=== PATIENT | female | born 2000 | race Caucasian/White ===

== ENCOUNTER 2025-08-19 09:32 | Outpatient (AMB) | payer MEDICAID, SELFPAY ==
[2025-08-19 09:36] VITALS: BP 136/79; PULSE 100; RESP 17; TEMP 36.5; O2SAT 99; BMI 23.8
--- NOTE | 2025-08-19 09:36 | OBCLNT_ITS ---
Vital Signs 08/19/25 09:36 Height 1.57 m Height Method Stated Weight 58.967 kg Weight Measurement Method Standing Scale BMI 23.8 BP 136/79 H Blood Pressure Source Automatic Cuff Blood Pressure Location Right Upper Arm Position Sitting Respiration 17 Pulse 100 Pulse Source Monitor Temp 97.7 F Temp Source Temporal Artery Scan Pulse Oximetry (%) 99 Oxygen Delivery Method Room Air Allergies/Home Meds Allergies & Medications Allergies No Known Allergies Allergy (Verified 08/19/25 09:41) Medication Reconciliation vits no.126-ferrous fum 28 mg iron-folic acid 800 mcg tablet (Classic ) tab PO 08/19/25 [History Confirmed 09/18/25] Intake Visit Data Collection New Patient or Established: New Patient (never been to [facility]) Reason for Visit:: OBI Seen by Clinical Staff ONLY (RN/MA): No Gas Or Petroleum Operator Required: No Do You Feel Safe at Home: Yes Authorities Contacted: N/A PCP or OBGYN visit in last 3 months: No Hx Now: Yes Are you currently on any form of Control: No Last menstrual period: 07/02/25 Pain Present Currently: No Pain Scale Used: Walker-Franklin/Numerical Pain scale:: 0 Smoking Status Smoking Status: Never smoker Immunizations Flu Vaccine in the Last 12 Months: No Questionnaires Covid-19 Vaccine Questionnaire Has patient been vacinated for Covid-19 Have you been vacinated for Covid-19: No PHQ-9 PHQ-2 Over the last 2 weeks, how often have you been bothered by any of the following problems? 1. Little interest or pleasure in doing things: not at all 2. Feeling down, depressed, or hopeless: not at all Total score: 0 PHQ-9 3. Trouble falling or staying asleep, or sleeping too much: Not at all 4. Feeling tired or having little energy: Not at all 5. Poor appetite or overeating: Not at all 6. Feeling bad about yourself - or that you are a failure or have let yourself or your family down: Not at all 7. Trouble concentrating on things, such as reading the newspaper or watching television: Not at all 8. Moving or speaking so slowly that other people could have noticed? - Or the opposite - being so fidgety or restless that you have been moving around a lot more than usual: not at all 9. Thoughts that you would be better off or of hurting yourself in some way: Not at all Total score: 0 If you checked off any problems, how difficult have these problems made it for you to do your work, take care of things at home, or get along with other people?: not difficult at all Source: Developed by Drs. Jarred Kasper, Mary Ann Fortune, Дмитрий Singh and colleagues, with an educational alex from [employer]. Depression screen completed yes Social History Living Situation History Marital Status: Single Lives With: Significant Other Housing: House Tobacco History Smoking Status: Never smoker Second Hand Smoke Exposure: No Alcohol History Alcohol Intake: Never Domestic Abuse History Do You Feel Safe at Home: Yes History of Present Illness HPI Narrative 25Years old G3?P?2at gestational age?6.6 weeks based on last menstrual period of dated?.07/02/2025 No complaints so far Here for first visit [id number] or 2022 LMP 07/02/2025 Ultrasound none so far medical problems none occ headaches Allergies NKDA Surgical history social history negative She has c/o green discharge on and off and would like to be checked Plan NIPT / carrier testing and labs next visit in 4 weeks Taking vitamins OB Initial Visit OB Flowsheet OB Flowsheet Initial Weight: Not Recorded Date -?-?-?-?-?-?-?-?-?-?-?-?- EGA Weight BP Alb Glu CTX Pres Fundal ht FHR Mov Dilation Station Effacement Hx Notes Visit Note 08/19/25 -?-?-?-?-?-?-?-?-?-?-?-?- 6w 6d 58.967 kg 136/79 09/18/25 -?-?-?-?-?-?-?-?-?-?-?-?- 11w 1d 58.684 kg 119/80 150 active Menstrual History Menstrual reliability: approximate (month known) Flow: normal Menstrual regularity: regular Monthly: Yes Age at menarche: 11 On control pills at conception: No OB History : 4 Para: 2 Hx # Pregnancies: 1 Hx Total # of Abortions (Spontaneous & Elective): 1 # of Living Children: 2 Delivery History 1st : Child's name: MONSTER NASCIMENTO date: 12/10/20 sex: male Gestational age at delivery (weeks): 40 Delivery type: vaginal weight (lbs): 3628.739 g History of depression before or after : No 2nd : Child's name: PARISH NASCIMENTO date: 01/17/24 sex: male Gestational age at delivery (weeks): 36 Delivery type: vaginal weight (lbs): 2721.554 g History of depression before or after : No Infection History & Risk Evaluation History of STDs: none Patient or partner has history of Genital Herpes: No Varicella/chicken pox status: immunized Genetic Screening & History Genetic Screening/Teratology Counseling - Includes patient, baby's father, or anyone in either family with: 1. Patient's age 35 years or older as of estimated date of delivery: No 2. Thalassemia (Beninese, Pashto, Mediterranean, or Background); MCV less than 80: No 3. Neural Tube Defect (Meningomyelocele, Spina Bifida, or Anencephaly): No 4. Congenital Heart Defect: Yes 5. Down Syndrome: No 6. Dc-Sachs (Ashkenazi Gnosticism, Cajun, Macedonian [place]): No 7. Daiana Disease (Ashkenazi Gnosticism): No 8. Familial Dysautonomia (Ashkenazi Gnosticism): No 9. Sickle Cell Disease or Trait (): No 10. Hemophilia or other blood disorders: No 11. Muscular Dystrophy: No 12. Cystic Fibrosis: No 13. Mary's Chorea: No 14. Mental Retardation/Autism: No 15. Other inherited genetic or chromosomal disorder: No 16. Maternal Metabolic Disorder (EG,TYPE 1 Diabetes, PKU): No 17. Patient or baby's father had a child with defects not listed above: No 18. Recurrent loss or a stillbirth: No 19. Medications (including supplements, vitamins, herbs or otc drugs)/illicit/recreational drugs/alcohol since last menstrual period: No 20. Any other: No Infection History 1. Live with someone with TB or exposed to TB: No Other (see comments) Source: [employer] Exam Narrative Physical exam: Alert and oriented x 3 no shortness of breath Pain no chest pain no palpitations Chest clear bilaterally no additional sounds, no wheezing no rales CVS regular rate and rhythm No CVAT Abdomen nontender, normal bowel sounds No guarding no rigidity No hernias pelvic exam small white discharge / uterus soft 6 to 8 weeks , R/V , cervic non tender / adnexa negative Vaginal c/s taken Office Procedures OBC Clinic LOC & Office Proc's Nursing/Assessment Patient Status: Initial/New Patient OB Clinic Nursing Assessment: Medication Reconciliation, Update PMH in EMR and Vital Signs OB Clinic Coordination of Care: Complex Care and Chronic Disease 1-5, Education Complex Pt/Fam, Consent,records obtained, informed consent, Lab and Imaging orders and Staff clarify orders Special Needs: Heart tones New Patient Charge New Patient Point Assignment: [id number] New Patient Point Charge: OIL LABORATORY ANALYST Level 4 ([id number]) In Clinic Bedside tests/procedures Bedside HCG: Yes Results Urine HCG Urine HCG Positive Last Edit by Daphney Stone MA on 08/19/25 09:5 8
== END 2025-08-19 10:13 | disposition home or self-care (01) ==
LOC: HODSOBC 09:32
PROVIDERS: Supervising Provider Advanced Practice Midwife; Visit Provider Obstetrics & Gynecology
DX: O09.891 Supervision of other high risk pregnancies, first trimester (principal); O99.891 Other specified diseases and conditions complicating pregnancy; N89.8 Other specified noninflammatory disorders of vagina; Z3A.01 Less than 8 weeks gestation of pregnancy
CPT/HCPCS: 81025; 99204; G0463

== ENCOUNTER 2025-09-18 09:34 | Outpatient (AMB) | payer MEDICAID, SELFPAY ==
[2025-09-18 09:43] VITALS: BP 119/80; PULSE 102; RESP 18; TEMP 36.3; O2SAT 99; BMI 23.8
--- NOTE | 2025-09-18 09:43 | OBCLNT_ITS ---
Vital Signs 09/18/25 09:43 Height 1.57 m Height Method Stated Weight 58.684 kg Weight Measurement Method Standing Scale BMI 23.8 BP 119/80 Blood Pressure Source Automatic Cuff Blood Pressure Location Right Upper Arm Position Sitting Respiration 18 Pulse 102 H Pulse Source Monitor Temp 97.4 F Temp Source Temporal Artery Scan Pulse Oximetry (%) 99 Oxygen Delivery Method Room Air Allergies/Home Meds Allergies & Medications Allergies No Known Allergies Allergy (Verified 08/19/25 09:41) Medication Reconciliation vits no.126-ferrous fum 28 mg iron-folic acid 800 mcg tablet (Classic ) tab PO 08/19/25 [History Confirmed 09/18/25] Immunizations Immunizations Flu Vaccine in the Last 12 Months: No Flu Vaccine Exclusion Criteria: No Exclusion Criteria Care OB Visit Log OB Flowsheet Initial Weight: Not Recorded Date -?-?-?-?-?-?-?-?-?-?-?-?- EGA Weight BP Alb Glu CTX Pres Fundal ht FHR Mov Dilation Station Effacement Hx Notes Visit Note 08/19/25 -?-?-?-?-?-?-?-?-?-?-?-?- 6w 6d 58.967 kg 136/79 09/18/25 -?-?-?-?-?-?-?-?-?-?-?-?- 11w 1d 58.684 kg 119/80 150 active ENID Calculator Estimated Delivery Date Method Current WG Current Estimate 04/08/26 LMP (Certain) 11w 1d Notes Visit Date: 09/18/25 Last Updated by: Sandra Krishnan MD 25 years old at 11.1 weeks / bedside Us shows CRL c/w 11.4 weeks and FCA present / Plan first trimester labs and Carrier screening and also carrier screening MSAFP next visit Visit Date: 08/19/25 Last Updated by: Sandra Krishnan MD 25Years old G3?P?2at gestational age?6.6 weeks based on last menstrual period of dated?.07/02/2025 No complaints so far Here for first visit/ urine HCG positive in office today [id number] or 2022 LMP 07/02/2025 Ultrasound none so far medical problems none occ headaches Allergies NKDA Surgical history social history negative She has c/o green discharge on and off and would like to be checked Plan NIPT / carrier testing and labs next visit in 4 weeks Taking vitamins Office Procedures OBC Clinic LOC & Office Proc's Nursing/Assessment Patient Status: Established Patient OB Clinic Nursing Assessment: Medication Reconciliation, Update PMH in EMR and Vital Signs OB Clinic Coordination of Care: Complex Care and Chronic Disease 1-5, Education Complex Pt/Fam, Consent,records obtained, informed consent, Lab and Imaging orders, Results/Orders obtained and Staff clarify orders Special Needs: Heart tones Established Patient Charge Established Patient Point Assignment: 140 Established Patient Point Charge: EP Level 4 (120-155) Assessment & Plan Diagnosis / Problem List (1) : Status: Acute Qualifiers: Weeks of gestation: 11 weeks Qualified Code(s): Z3A.11 - 11 weeks gestation of Plan: HISTORY OF PRESENT ILLNESS AI Consent obtained: I, Dr. Krishnan, have obtained verbal consent from the patient, to be recorded during this encounter which may include, but not limited to, medical history, examination, treatment plans, and relevant health information. Patient was informed that recording will be read and reviewed by myself before inclusion in the medical chart. Recordings will be maintained in accordance with State and Federal law and only for a limited period of time for validation purposes, then destroyed and not retained. The patient presents for evaluation of . She is currently 11 weeks and has not yet undergone any initial blood work. She plans to do all the necessary tests, including gender testing, at once. She recalls that during her previous , she had an elevated test result. ASSESSMENT AND PLAN 1. : - Currently 11 weeks and 4 days . An ultrasound confirmed viability and showed a heartbeat. - A comprehensive set of laboratory tests has been ordered, including NIPT, hepatitis antibody screen, HIV, gender testing, carrier testing for genetic diseases, and general labs. The AFP test for spinal bifida will be conducted after 15 weeks. - Advised to continue taking vitamins. Offered the influenza vaccine, which she has declined at this time. Follow-up: The patient will follow up in 4 weeks. Additional Plan Follow Up: 4 Weeks
== END 2025-09-18 10:30 | disposition home or self-care (01) ==
LOC: HODSOBC 09:34
PROVIDERS: Supervising Provider Obstetrics & Gynecology; Visit Provider Obstetrics & Gynecology
DX: Z34.81 Encounter for supervision of other normal pregnancy, first trimester (principal); Z3A.11 11 weeks gestation of pregnancy
CPT/HCPCS: 99214; G0463